=== PATIENT | female | born 2000 | race Caucasian/White ===

== ENCOUNTER 2023-01-06 18:28 | Emergency (ER) | payer OTHER ==
[2023-01-06 19:01] VITALS: BP 125/66; PULSE 89; RESP 16; TEMP 99.3; BMI 24.4
[2023-01-06] MEDS ORDERED: KETOROLAC TROMETHAMINE 30 MG/1 ML VIAL IM ONE (19:49)
[2023-01-06] MEDS ORDERED: KETOROLAC TROMETHAMINE 30 MG/1 ML VIAL ONE (19:50)
[2023-01-06 20:07] LABS: HCG,QUALITATIVE URINE Negative
[2023-01-06 20:11] LABS: EPI CELLS 25 /uL (0-25.1); HYALINE CASTS 1 /uL (0-3.1); PH,URINE 6.5 (5.0-8.0); URINE APPEARANCE CLEAR; URINE BACTERIA 1695 /uL (0-1359); URINE BILIRUBIN NEGATIVE (NEGATIVE); URINE COLOR YELLOW; URINE GLUCOSE (UA) NEGATIVE (NEGATIVE); URINE KETONE NEGATIVE (NEGATIVE); URINE LEUK ESTERASE 1+ (NEGATIVE); URINE NITRITE NEGATIVE (NEGATIVE); URINE PROTEIN NEGATIVE (NEGATIVE); URINE RBC 10 /uL (0-23.9); URINE WBC 67 /uL (0-25.8)
[2023-01-06] MEDS ORDERED: CEPHALEXIN MONOHYDRATE 500 MG CAPSULE (UD) ONE (20:23)
[2023-01-06] MEDS ORDERED: CEPHALEXIN MONOHYDRATE 500 MG CAPSULE (UD) PO ONE (20:23)
== END 2023-01-06 20:35 | disposition home or self-care (01) ==
LOC: JER 18:28 → JERFT 18:28
DX: N30.90 Cystitis, unspecified without hematuria (principal)
CPT/HCPCS: 81003; 84703; 87086; 99284-25